=== PATIENT | female | born 1980 | race Caucasian/White ===

== ENCOUNTER 2020-08-08 09:31 | Emergency (ER) | payer OTHER ==
[~2020-08-08] VITALS: Ht 152.4 cm; Wt 70.3 kg
[~2020-08-08 09:31] MED LIST: PEPCID40 MG PO; ZOFRAN8 MG PO
[2020-08-08] MEDS ORDERED: KETO10TA2 PO (14:36)
[2020-08-08] MEDS ORDERED: ORPHENADRINE C100 MG PO (14:36)
== END 2020-08-08 14:47 | disposition home or self-care (01) ==
LOC: ER 09:31
DX: M94.0 Chondrocostal junction syndrome [Tietze] (principal); R07.89 Other chest pain

== ENCOUNTER 2020-11-17 12:03 | Outpatient (CLI) | payer OTHER ==
[~2020-11-17 12:03] MED LIST changes: +KETO10TA2 PO; +ORPHENADRINE C100 MG PO
== END 2020-11-17 12:08 | disposition home or self-care (01) ==
LOC: SONOGRAMA 12:03
PROVIDERS: ATTEND Pathology Anatomic Pathology & Clinical Pathology
DX: E04.2 Nontoxic multinodular goiter (principal)

== ENCOUNTER 2021-06-30 12:43 | Outpatient (CLI) | payer OTHER | END 2021-06-30 12:57 | disposition home or self-care (01) | LOC: NUCLEAR 12:43 | PROVIDERS: ATTEND Internal Medicine Sports Medicine | DX: C73 Malignant neoplasm of thyroid gland (principal); E89.0 Postprocedural hypothyroidism | CPT/HCPCS: 78018; A9548 ==

== ENCOUNTER 2022-07-02 12:51 | Outpatient (CLI) | payer OTHER | END 2022-07-02 12:52 | disposition home or self-care (01) | LOC: NUCLEAR 12:51 | PROVIDERS: ATTEND Internal Medicine Sports Medicine | DX: C73 Malignant neoplasm of thyroid gland (principal) ==